=== PATIENT | female | born 1980 | race African-American/Black ===

== ENCOUNTER 2017-08-18 15:22 | Emergency (ER) | payer OTHER ==
[2017-08-18] MEDS: ONDANSETRON 4MG/2ML VIAL (J2405) IV (19:53)
[2017-08-18] MEDS: NS 1,000 ML IV (19:54)
[2017-08-18 20:13] LABS: BASO % 0.3 % (0.0-1.0); EOS % 0.2 % (0.0-3.0); HEMATOCRIT 38.9 % (36.0-47.0); HEMOGLOBIN 12.9 g/dl (12.0-15.5); IMMATURE GRANULOCYTE % 0.2 % (0-3.0); LYMPH # 2.2 10^3/uL (1.5-4.5); LYMPH % 37.2 % (24.0-44.0); MEAN CORPUSCULAR HGB CONC 33.2 g/dl (32.0-36.5); MEAN CORPUSCULAR VOLUME 84.4 fl (80.0-96.0); MONO # 0.6 10^3/uL (0.0-0.8); MONO % 9.4 % (0.0-5.0); NEUTROPHILS # 3.1 10^3/uL (1.8-7.7); NEUTROPHILS % 52.7 % (36.0-66.0); PLATELET COUNT, AUTOMATED 194 10^3/uL (150-450); RED BLOOD COUNT 4.61 10^6/uL (4.00-5.40); RED CELL DISTRIBUTION WIDTH 12.7 % (11.5-14.5); WHITE BLOOD COUNT 5.9 10^3/uL (4.0-10.0)
[2017-08-18 20:37] LABS: KETONE, URINE AUTO RFX 2+ mg/dL (NEGATIVE); LEUKOCYTE ESTERASE UR AUTO RFX NEGATIVE (NEGATIVE); MUCUS, URINE RFX SMALL (NEGATIVE); NITRITE, URINE AUTO RFX NEGATIVE (NEGATIVE); RBC, URINE AUTO RFX 3 /HPF (0-3); SQUAM EPITHELIAL CELL UR AURFX 1 /HPF (0-6); WBC, URINE AUTO RFX 2 /HPF (0-3)
[2017-08-18 20:49] LABS: HCG, SERUM QUANTITATIVE 69624 MIU/ML
== END 2017-08-18 21:19 | disposition home or self-care (01) ==
LOC: M ED 15:22
DX: O23.41 Unspecified infection of urinary tract in pregnancy, first trimester (principal); Z3A.01 Less than 8 weeks gestation of pregnancy
CPT/HCPCS: J2405

== ENCOUNTER 2018-03-22 15:24 | Inpatient (IN) | payer OTHER ==
[~2018-03-22] VITALS: Ht 170.2 cm; Wt 102.0 kg
[2018-03-22] VITALS (10 sets, daily range): BP systolic 126–147; BP diastolic 64–97
[~2018-03-22 15:24] MED LIST: KEFL500C17 PO
[2018-03-22] MEDS ORDERED: OXYTOCIN 30 UNITS IN 0.9% NaCl 500ML IV BAG (J2590) As Ordered ONE (15:35)
[2018-03-22] MEDS ORDERED: PRENTAB9 PO (15:45)
[2018-03-22] MEDS ORDERED: LACTATED RINGER'S 1000 ML IV STA (15:50)
--- NOTE | 2018-03-22 16:04 | HPEPDOC ---
Obstetrical History & Physical General Date of Admission Mar 22, 2018 at 15:35 History of Present Illness 37 yo at 38+4 weeks by LMP of [id number] c/w 1st trimester US on presented to L&D in active labor. She denies any leakage of fluid or bleeding. She endorses movement. is complicated by AMA, and she had low risk cff DNA testing. Chief Complaint: Contractions, term Information Provided By: Patient Age: 37 : 4 Term: 2 Pre-term: 0 Abortions: 1 (Ectopic requiring left salpingectomy) Livin Care Care: Good Care Dating Final EDC: Apr 01, 2018 Final EDC for Daily Update: Apr 01, 2018 Final EDC by: LMP LMP: Jun 25, 2017 1st Trimester Date: Aug 25, 2017 Antepartum Course Diagnos(e)s AMA ---> low risk cff DNA genetic screening Past Medical History Past Obstetrical History : Past Obstetrical History: Multigravida Type of Delivery: Spontaneous Vaginal Del. ( X2 at term. Pelvis proven to 8lbs 3oz.) Complications: No PHTHALIC ACID PURIFIER History: No pertinent history Past Medical History Medical History Denies Surgical History: Appendectomy, Other (Left salpingectomy for ectopic ) Family History Significant Family History: No pertinent family hx Family History Non contributory Social History Marital Status: Family situation: Spouse/partner deployed Psychosocial History: No pertinent psych hx * Smoker: non-smoker Alcohol: Denies Drugs: denies Imunizations Tdap status: current Influenza Status: current Allergies Coded Allergies: No Known Allergies (Unverified , 03/22/18) Medications Scheduled Multivitamins/ ( 27-0.8 mg) 1 Tab Tab, 1 TAB PO DAILY Physical Examination Physical Examination GENERAL: Alert and oriented times three. ABDOMEN: Gravid and non-tender to touch. FETUS: Is vertex (VTX) by sterile vaginal examination (SVE) EXTREMITIES: No edema. Laboratory Data 24H LABS Laboratory Tests 2 03/22/18 15:50: Serology Scanned Report Hepatitis B Testing Urine Culture: No Growth Pertinent Laboratoy Data Blood Type: B+ RBC Antibody Screen: Negative HIV: Negative Hepatitis B: Negative Hepatitis C: Unknown Rapid Plasma Reagin: Nonreactive Rubella: Immune Varicella: Immune Chlamydia/Gonorrhea: Negative Group B Streptococcus: Negative Quad Screen Test: Negative Cystic Fibrosis: Negative Glucose Tolerance Test: 83 Anatomy Ultrasound Placenta Location: Posterior Normal Anatomy: Yes (Choroid plexus cyst, hypocoiled umbilical cord, and EIF) Steroid Therapy Steroid Therapy: No Vaginal Examination Dilation: 8 cm Effacement: 100% Station: -1, 0 Cervical Consistency: Soft Cervical Position: Anterior Presentation: Cephalic presentation Position: Vertex (occiput) Assessment Heart Rate (FHR): 125 Variability: Moderate Accelerations: Positive Decelerations: None Tocometer Contractions: Yes Frequency: regular Duration: greater than 60 seconds Strength: palpated as moderate Assessment/Plan Assessment 37 yo at 38+4 weeks presented to L&D in active labor. is uncomplicated. Plan Admit to L&D for expectant management of labor. Apply IV fluids. GBS negative. Patient may have epidural if desired. Anticipate . DO LEON Yee CHRISTOPHER J. DO Mar 22, 2018 16:04
[2018-03-22] MEDS ORDERED: FENTANYL 2MCG/ML ROPIVACAINE 0.2% IN 0.9% NACL 100ML IVBAG As Ordered ONE (16:37)
[2018-03-22 17:06] LABS: HEMATOCRIT 35.8 % (36.0-47.0); HEMOGLOBIN 11.6 g/dl (12.0-15.5); MEAN CORPUSCULAR HEMOGLOBIN 28.3 pg (27.0-33.0); MEAN CORPUSCULAR HGB CONC 32.4 g/dl (32.0-36.5); MEAN CORPUSCULAR VOLUME 87.3 fl (80.0-96.0); PLATELET COUNT, AUTOMATED 197 10^3/uL (150-450); WHITE BLOOD COUNT 5.8 10^3/uL (4.0-10.0)
--- NOTE | 2018-03-22 17:50 | DNPDOC ---
[facility] Delivery Note Delivery Note DATE OF DELIVERY: 22Mar2018 PREDELIVERY DIAGNOSIS: 38+4 weeks gestation and active labor POST DELIVERY DIAGNOSIS: Delivered. PROCEDURE: Spontaneous vaginal delivery COFFIN MAKER: Dr. Merino ANESTHESIA: None. ESTIMATED BLOOD LOSS: 300 mL. FINDINGS: 7 pound 0 ounce (3180 grams) male infant, Score 9/9. DELIVERY SUMMARY: I was called to the room as Ms. Elias felt a strong urge to push. Exam confirmed fetus at +2 station. AROM performed productive of clear fluid. The bed was broken down and she was prepped for delivery. With excellent pushing effort her infant delivered. Presentation was JESENIA with restitution to ROT. The left anterior shoulder delivered with gentle guidance followed easily by the remainder of the body. The was dried and stimulated on the field and a bulb suction was used. The cried vigorously and was placed on the maternal abdomen. I then clamped the 3 vessel umbilical cord and Ms. Elias cut it. Third staged was completed spontaneously and it was productive of an intact placenta. Inspection of the placenta revealed an approximately 25% area concerning for abruption. The uterine fundus was firmed with massage and pitocin was administered IV bolus. Inspection of the cervix, perineum, labia, and vagina revealed a small, midline first degree vaginal floor laceration. This was repaired with 3-0 vicryl suture in the usual fashion. There was excellent approximation of tissue and hemostasis. The fund us was palpated again and was firm. Sponge, instrument, and needle counts were correct X2. Mother stable when I left the room. DO LEON Yee CHRISTOPHER J. DO Mar 22, 2018 17:50
[2018-03-22] MEDS ORDERED: OXYTOCIN DRIP 30 UNITS in APPROPRIATE DILUENT 1 EA IV SCH (17:51)
[2018-03-22] MEDS ORDERED: ACETAMINOPHEN 500 MG TAB PO PRN (18:00)
[2018-03-22] MEDS ORDERED: DIBUCAINE 1% OINTMENT 30GM TOP PRN (18:00)
[2018-03-22] MEDS ORDERED: RHOGAM 300 MCG (1500 IU) INJ (J2790) IM SCH (18:00)
[2018-03-22] MEDS ORDERED: ONDANSETRON 4MG/2ML VIAL (J2405) IV PRN (18:00)
[2018-03-22] MEDS ORDERED: DOCUSATE SODIUM 100 MG CAP PO PRN (18:00)
[2018-03-22] MEDS ORDERED: MEASLES,MUMPS,RUBELLA VACCINE INJ (MMR-II) (90707) SC SCH (18:00)
[2018-03-22] MEDS: IBUPROFEN 800 MG TAB PO PRN (19:32)
[2018-03-23] MEDS: IBUPROFEN 800 MG TAB PO PRN ×2 (05:39→17:53)
[2018-03-23 06:01] VITALS: BP 135/72
--- NOTE | 2018-03-23 07:20 | IPNPDOC ---
Text Note Date of Service The patient was seen on 03/23/18. NOTE Ms. Elias is a 37 yo G4 now P3 who underwent an uncomplicated in the evening on 22Mar2018. Today she reports feeling well. She is ambulating, voiding, and tolerating a regular diet. Her lochia is minimal and she has no pain. She is . Vitals - VSS, intermittent mild BP elevations, but nothing consistent or severely elevated. Afebrile, non tachycardic General - AAOX3, sitting up in bed, NAD Abdomen - Fundus firm at U-2. No fundal tenderness Extremities - No edema No new labs Ms. Elias is doing well this AM and is making an appropriate recovery. is in [place] and she is currently undecided regarding additional contraception. Continue to encourage ambulation and today. Continue routine care. Anticipate DC home tomorrow. Yamini Quintero DO VS,Fishbone, I+O VS, Fishbone, I+O Laboratory Tests 03/22/18 15:38 Red Blood Count 4.10, Mean Corpuscular Volume 87.3, Mean Corpuscular Hemoglobin 28.3, Mean Corpuscular Hemoglobin Concent 32.4, Red Cell Distribution Width 12.4 Vital Signs Date Time Temp Pulse Resp B/P (MAP) Pulse Ox O2 Delivery O2 Flow Rate FiO2 03/23/18 06:01 98.3 68 16 135/72 (93) I&O- Last 24 Hours up to 6 AM 03/23/18 06:00 Intake Total 1500 ml Output Total 1100 ml Balance 400 ml YAMINI QUINTERO DO Mar 23, 2018 07:20
[2018-03-23] MEDS: PRENATAL VITAMINS CHEWABLE TABLET PO SCH (08:35)
[2018-03-23 18:00] VITALS: BP 129/73
[2018-03-24 05:47] VITALS: BP 134/70
--- NOTE | 2018-03-24 06:42 | IPNPDOC ---
Progress Note Date of Service: Mar 24, 2018 Day#: 2 Progress Note PPD 2 SUBJECT: Rere is a 37yo [id number] s/p uncomplicated after presenting in active labor at 38+wk, doing well day # 2. She has been ambulating, voiding spontaneously without issue and tolerating regular diet. Breast feeding without issue. Reports lochia is like a normal period. No f/c/n/v/CP/SOB. OBJECTIVE: VITAL SIGNS: Within normal limits, afebrile. Alert and oriented times three. Abdomen: Fundus firm at U-2. Soft, NTTP. ASSESSMENT: Rere is a 37yo [id number] s/p uncomplicated after presenting in active labor at 38+wk, doing well day # 2. Vitals within normal limits, afebrile, hemodynamically stable with no evidence of infection. PLAN: 1. Discharge to home today. 2. Tylenol and Motrin for pain. 3. Encourage breast feeding and ambulation. 4. Routine PP visit in 6 weeks in clinic. 5. Discussed return precautions at length. Dr. Beena Smith MD VS, I&O, 24H, Fishbone Vital Signs/I&O Vital Signs Date Time Temp Pulse Resp B/P (MAP) Pulse Ox O2 Delivery O2 Flow Rate FiO2 03/24/18 05:47 97.8 62 18 134/70 (91) Beena Smith MD Mar 24, 2018 06:42
[2018-03-24] MEDS ORDERED: IBUP-1114 PO (07:21)
[2018-03-24] MEDS ORDERED: MAPA500T2 PO (07:21)
[2018-03-24] MEDS ORDERED: COLA100C5 PO (07:22)
[2018-03-24] MEDS: PRENATAL VITAMINS CHEWABLE TABLET PO SCH (08:23)
== END 2018-03-24 10:00 | disposition home or self-care (01) | DRG 807 ==
LOC: M LDO 15:24 → M LDI 15:35 → M OBS 20:10
PROVIDERS: ADMIT Obstetrics & Gynecology; ATTEND Obstetrics & Gynecology
PROC: 10E0XZZ Delivery of Products of Conception, External Approach (ICD-10-PCS; principal; 2018-03-22)
PROC: 10907ZC Drainage of Amniotic Fluid, Therapeutic from Products of Conception, Via Natural or Artificial Opening (ICD-10-PCS; 2018-03-22)
PROC: 0HQ9XZZ Repair Perineum Skin, External Approach (ICD-10-PCS; 2018-03-22)
DX: O70.0 First degree perineal laceration during delivery (principal); Z37.0 Single live birth; Z3A.38 38 weeks gestation of pregnancy

== ENCOUNTER 2020-10-01 23:16 | Outpatient (CLI) | payer OTHER ==
[~2020-10-01] VITALS: Ht 170.2 cm; Wt 110.6 kg
[~2020-10-01 23:16] MED LIST changes: +COLA100C5 PO; +IBUP-1114 PO; +MAPA500T2 PO; +PRENTAB9 PO
[2020-10-01 23:32] VITALS: BP 143/80
[2020-10-01] MEDS ORDERED: ASPI81CH33 PO (23:40)
[2020-10-01] MEDS ORDERED: HOME MED LIST COMPLETE! XX SCH (23:45)
[2020-10-01] MEDS ORDERED: LR 1,000 ML IV ONE (23:55)
[2020-10-02] MEDS ORDERED: BUTORPHANOL 2 MG/ML INJ (J0595) IV ONE (02:15)
[2020-10-02] MEDS ORDERED: PROMETHAZINE INJ 25 MG/ML VIAL (J2550) IV ONE (02:15)
--- NOTE | 2020-10-02 02:30 | IPNPDOC ---
Text Note Date of Service The patient was seen on 10/02/20. NOTE Item Value Date Time Urine Color YELLOW 10/02/2052 Urine Appearance HAZY 10/02/2052 Urine pH 6.0 UNITS 10/02/2052 Urine Specific [place] 1.013 10/02/2052 Urine Protein NEGATIVE mg/dL 10/02/2052 Urine Glucose (UA) NEGATIVE mg/dL 10/02/2052 Urine Ketones NEGATIVE mg/dL 10/02/2052 Urine Blood 1+ H 10/02/2052 Urine Nitrite NEGATIVE 10/02/2052 Urine Bilirubin NEGATIVE 10/02/2052 Urine Urobilinogen 0.2 mg/dL 10/02/2052 Urine Leukocyte Esterase NEGATIVE 10/02/2052 Urine WBC (Auto) 0 /HPF 10/02/2052 Urine RBC (Auto) 1 /HPF 10/02/2052 Urine Hyaline Casts (Auto) 0 /LPF 10/02/2052 Urine Bacteria (Auto) NEGATIVE 10/02/2052 Urine Squamous Epithelial Cells 2 /HPF 10/02/2052 Urine Mucus (Auto) SMALL 10/02/205210/02/20 39 yo AT 36.4 WEEKS BASED ON US AT 8.1 WEEKS EDC 10/26/20 HISTORY CONTRACTIONS 5 2-5 MINUTES WITH PELVIC PRESSURE. PAST HISTORY 2014 39.4 WEEKS MALE 7LBS 3 OZ 12/2015 38 WEEKS MALE 8 LBS 3 OZ 03/2017 38 WEEKS MALE 7 LBS 12/2015 ECTOPIC 8 WEEKS LSO RISK FACTORS AMA CHTN PLAN AND EXAMINATION APPEARS DISTRESSED CONTRACTIONS 4-5 MINUTES NO SHOW NO BLEEDING PELVIC EXAMINATION 2-3 CM VERY POSTERIOR 50% EFFACED -3 STATION NO BLOOD CATEGORY 1 STRIP. REPEAT 3 HOURS LATER STILL DISTRESSED CERVIX NO CHANGE CATEGORY 1 STRIP NO DECELERATIONS MODERATE VARIABILITY BASELINE NORMAL URINE NEGATIVE WELL HYDRATED . OPTIONS GO HOME OR SEDATION TO REST . PATIENT OPTED FOR SEDATION WILL RECHECK IN 3 HOURS VS,Fishbone, I+O VS, Fishbone, I+O Vital Signs Date Time Temp Pulse Resp B/P (MAP) Pulse Ox O2 Delivery O2 Flow Rate FiO2 10/01/20 23:32 77 18 143/80 (101) 10/01/20 23:29 98.5 Mio Polanco MD Oct 02, 2020 02:29
[2020-10-02 02:37] VITALS: BP 128/76
--- NOTE | 2020-10-02 08:00 | DSES ---
DISCHARGE SUMMARY DATE OF ADMISSION: 10/01/2020 DATE OF DISCHARGE: 10/02/2020 This lady is a 39-year-old, 5, para 3, admitted for what appeared distressful contractions 4-5 minutes apart, no show, no bleeding. Pelvic examination showed 2-3 cm very posterior, 50% effaced, minus 3 station, no bloody show, category 1 strip, repeated 3 hours later and 6 hours later, no evidence of change of cervix. Contractions did space out. She was given Stadol and Phenergan for sleep, did have a good sleep and upon re-examination, there is basically no change at 0530 hours in the morning. Her vital signs: Her blood pressure is 143/80. Respirations are 18, pulse 77. Temperature is 98.5. Retake of her blood pressure 128/76, respirations 18, pulse 68. Temperature is 98.l5. Examination is unchanged. The patient was given Stadol and Phenergan to sleep, did a good sleep. Upon waking up, she had typical heart rate tracing based on her Stadol and Phenergan although there were no decelerations. Contractions had spaced out considerably. The patient was discharged undelivered. She has a followup appointment in 48 hours at the office. Precautions were given. All questions were answered, 20 minute discussion. The patient was discharged undelivered. [place] [facility]
== END 2020-10-02 05:56 | disposition home or self-care (01) ==
LOC: M LDO 23:16
PROVIDERS: ATTEND Obstetrics & Gynecology
DX: O10.013 Pre-existing essential hypertension complicating pregnancy, third trimester (principal); Z3A.36 36 weeks gestation of pregnancy; O09.523 Supervision of elderly multigravida, third trimester; O47.03 False labor before 37 completed weeks of gestation, third trimester; Z79.899 Other long term (current) drug therapy
CPT/HCPCS: 59025; 81001; 96361; 96374; 96375; G0378; G0463; J0595

== ENCOUNTER 2020-10-09 13:39 | Outpatient (CLI) | payer OTHER ==
[~2020-10-09] VITALS: Ht 170.2 cm; Wt 112.0 kg
[~2020-10-09 13:39] MED LIST changes: +ASPI81CH33 PO
[2020-10-09 13:57] VITALS: BP 132/86
--- NOTE | 2020-10-09 15:06 | IPNPDOC ---
Text Note Date of Service The patient was seen on 10/09/20. NOTE S: 39yo kurt [id number] @37+4, presents to labor and delivery triage with c/o pelvic pressure and irregular mild contractions. Denies bleeding or LOF, states reassuring FM O: VSS RNST, fhr 130, +accel, -decel, occasional contractions noted Cervical exam 4/80/-3, posterior, moderate A: AMA suspected condition not found P:Pt educated on return precautions, signs of labor, comfort measures, safe use of OTC medication for comfort including tylenol and benadryl for sleep with expressed understanding of all instructions and reasons to return for care. VS,Fishbone, I+O VS, Fishbone, I+O Vital Signs Date Time Temp Pulse Resp B/P (MAP) Pulse Ox O2 Delivery O2 Flow Rate FiO2 10/09/20 13:57 98.8 88 20 132/86 (101) KRISTIE KELLER CNM Oct 09, 2020 15:06
== END 2020-10-09 15:00 | disposition home or self-care (01) ==
LOC: M LDO 13:39
PROVIDERS: ATTEND Registered Nurse
DX: O47.1 False labor at or after 37 completed weeks of gestation (principal); Z3A.37 37 weeks gestation of pregnancy; O09.523 Supervision of elderly multigravida, third trimester
CPT/HCPCS: 59025; G0378; G0463

== ENCOUNTER 2020-10-12 08:18 | Inpatient (IN) | payer OTHER ==
[~2020-10-12] VITALS: Ht 170.2 cm; Wt 111.4 kg
[2020-10-12] VITALS (31 sets, daily range): BP systolic 94–151; BP diastolic 53–88
[2020-10-12] MEDS ORDERED: HOME MED LIST COMPLETE! XX SCH (08:40)
[2020-10-12] MEDS ORDERED: LIDOCAINE 1% MDV 20ML VIAL INFIL PRN (10:20)
[2020-10-12] MEDS ORDERED: OXYTOCIN DRIP 30 UNITS in IV 1 EA IV PRN (10:20)
[2020-10-12] MEDS ORDERED: OXYTOCIN DRIP 30 UNITS in IV 1 EA IV SCH ×2 (10:50→16:10)
[2020-10-12] MEDS: LR 1,000 ML IV SCH ×2 (11:05→14:10)
--- NOTE | 2020-10-12 11:18 | HPEPDOC ---
Obstetrical History & Physical General Date of Admission Oct 12, 2020 at 08:18 History of Present Illness presenting for scheduled IOL for LIANET TRUONG @38 wks Chief Complaint: Induction of labor Information Provided By: Patient Age: 39 : 5 Term: 3 Pre-term: 0 Abortions: 1 Livin Care Care: Good Care Dating Final EDC: Oct 26, 2020 Final EDC for Daily Update: Oct 26, 2020 Final EDC by: LMP LMP: Jan 20, 2020 EGA at Admission: 38 Antepartum Course Diagnos(e)s LIANET TRUONG Height (inches): 67 Pre- weight (lbs.): 206 Admission Weight (lbs.): 245 Change in Weight (lbs.): 39 Past Medical History Past Obstetrical History #1: Past Obstetrical History: Multigravida (2015, 39+4, 7#3 male) Type of Delivery: Spontaneous Vaginal Del. Sex of : Male Past Obstetrical History #2: Past Obstetrical History: Multigravida (2016, 38, 8#3 male) Type of Delivery: Spontaneous Vaginal Del. Sex of Infant: Male Past Obstetrical History #3: Past Obstetrical History: Multigravida (2018, 38, 7# male) Type of Delivery: Spontaneous Vaginal Del. Sex of Infant: Male Complications: No SUPERVISOR NURSE History: Ectopic (8wk left salpingectomy) Past Medical History Medical History CHTN, obesity Surgical History: Appendectomy, Other (left salpingectomy for ectopic pregnan cy) Family History Significant Family History: No pertinent family hx Social History Marital Status: Family situation: Spouse/partner home Psychosocial History: No pertinent psych hx * Smoker: non-smoker Alcohol: Denies Drugs: denies Abuse Violence Screening Have you been hit/kicked/slapp: No Have you been sexually assault: No Imunizations Tdap status: current Influenza Status: current Allergies Coded Allergies: No Known Allergies (Unverified , 03/22/18) Medications Scheduled No.137/Iron/Folic Acd ( Vitamin Tablet) 1 Tab Tab, 1 TAB PO DAILY Physical Examination Physical Examination GENERAL: Alert and oriented times three. BREAST: . ABDOMEN: Gravid and non-tender to touch. FETUS: Is vertex (VTX) by sterile vaginal examination (SVE), fetus is vertex (VTX) by Trent. HEART RATE: Regular rate and rhythm. LUNGS: Clear to auscultation (CTA). EXTREMITIES: No edema. No clonus. Deep tendon reflexes (DTRs) + 2. Vital Signs/I&O Vital Signs Date Time Temp Pulse Resp B/P (MAP) Pulse Ox O2 Delivery O2 Flow Rate FiO2 10/12/20 10:17 78 16 124/75 (91) 10/12/20 08:34 99 Room Air 10/12/20 08:33 98.2 Pertinent Laboratoy Data Blood Type: B+ RBC Antibody Screen: Negative HIV: Negative Hepatitis B: Negative Rapid Plasma Reagin: Nonreactive Rubella: Immune Varicella: Immune Chlamydia/Gonorrhea: Negative Group B Streptococcus: Negative Cystic Fibrosis: Negative Anatomy Ultrasound Ultrasound Date: Sep 07, 2020 Placenta Location: Anterior Normal Anatomy: Yes Placenta Previa: No Vaginal Examination Dilation: 4 cm Effacement: 80% Station: -2 Cervical Consistency: Soft Cervical Position: Posterior Presentation: Cephalic presentation Assessment Heart Rate (FHR): 120 Variability: Moderate Accelerations: Positive Decelerations: None Tocometer Contractions: Yes Frequency: greater than 9 min/apart Duration: greater than 60 seconds Strength: palpated as mild, resting tone palp/soft Multi-drug resistant Organism: No history of MDRO Assessment/Plan Assessment Rere is a 39-year-old (G)5 para (P)3-0-1-3 at 38+0 weeks by 8+1-week ultrasound. Presents to Labor and Delivery (L&D) for scheduled IOL. Denies bleeding, LOF, states irregular cramping has continued and she has frequent movement. Plan Admit and orient. Ruby On Rails Web Developer and consent. Diet: clear. Group B Streptococcus (GBS) negative. Labs and intravenous (IV) per unit protocol. Counseled on Pitocin and induction of labor (IOL). Lactated Ringers (LR): at 125 mL/hr, bolus 1000mL prior to epidural anesthesia. Anticipate [normal spontaneous delivery ()]. C-S as appropriate. KRISTIE KELLER CNM Oct 12, 2020 11:18
[2020-10-12 12:17] LABS: HEMATOCRIT 37.1 % (36.0-47.0); HEMOGLOBIN 11.9 g/dl (12.0-15.5); MEAN CORPUSCULAR HEMOGLOBIN 29.3 pg (27.0-33.0); MEAN CORPUSCULAR HGB CONC 32.1 g/dl (32.0-36.5); MEAN CORPUSCULAR VOLUME 91.4 fl (80.0-96.0); PLATELET COUNT, AUTOMATED 190 10^3/uL (150-450); RED BLOOD COUNT 4.06 10^6/uL (4.00-5.40); WHITE BLOOD COUNT 5.1 10^3/uL (4.0-10.0)
[2020-10-12] MEDS ORDERED: FENTANYL 2MCG/ML ROPIVACAINE 0.2% IN 0.9% NACL 100ML IVBAG As Ordered ONE (13:38)
[2020-10-12] MEDS ORDERED: FENTANYL/ROPIVACAINE/NACL BAG 100 ML EPIDURAL SCH (15:25)
[2020-10-12] MEDS ORDERED: EPIDURAL/PCA KEYS XX PRN (15:25)
[2020-10-12] MEDS ORDERED: diphenhydrAMINE 50MG/ML VIAL (J1200) IV PRN (15:25)
[2020-10-12] MEDS ORDERED: EPIDURAL COMMENT XX SCH (15:25)
[2020-10-12] MEDS ORDERED: ONDANSETRON 4MG/2ML VIAL IV PRN (15:25)
[2020-10-12] MEDS ORDERED: LACTATED RINGER'S 1000 ML IV PRN (15:25)
[2020-10-12] MEDS ORDERED: NALOXONE INJ 0.4MG/1ML VIAL (J2310 PER 1MG) IV PRN (15:25)
[2020-10-12] MEDS ORDERED: ePHEDrine SULFATE 25 MG/5 ML(5MG/ML) SYRINGE IV PRN (15:25)
[2020-10-12] MEDS ORDERED: REFRIGERATOR IV KEYS XX PRN (15:25)
[2020-10-12] MEDS ORDERED: RHOGAM 300 MCG (1500 IU) INJ (J2790) IM SCH (16:10)
[2020-10-12] MEDS ORDERED: MEASLES,MUMPS,RUBELLA VACCINE INJ (MMR-II) (90707) SC SCH (16:10)
[2020-10-12] MEDS ORDERED: METHYLERGONOVINE MALEATE 0.2 MG TAB PO PRN (16:10)
[2020-10-12] MEDS ORDERED: ACETAMINOPHEN TAB 650MG DOSE (2X325MG) PO PRN (16:10)
[2020-10-12] MEDS ORDERED: DIBUCAINE 1% OINTMENT 30GM TOP PRN (16:10)
[2020-10-12] MEDS ORDERED: DOCUSATE SODIUM 100MG CAPSULE PO PRN (16:10)
--- NOTE | 2020-10-12 16:32 | DNPDOC ---
[facility] Delivery Note Delivery Note DATE OF DELIVERY: 12Oct2020 PREDELIVERY DIAGNOSIS: 38-0/7 weeks' gestation and labor. POST DELIVERY DIAGNOSIS: Delivered. PROCEDURE: Spontaneous vaginal delivery. OFFICE AUTOMATION CLERK: Samantha Keller CNM ANESTHESIA: epidural. ESTIMATED BLOOD LOSS: 200 mL. FINDINGS: 8 pound 15 ounce male , Score 9/9, bandalero cord times 1. DELIVERY SUMMARY: Patient is a 39-year-old 5 now para 4-0-1-4 who was admitted to labor and delivery for IOL on 12Oct2020. After becoming comfortable from epidural, patient was examined at 6/80/-3, AROM for clear fluid. Shortly after exam, Rere called out with c/o pressure and urge to push, at which time she was found to be C/C/+2. Brisk decent was made with maternal pushing efforts to in OA presentation with restitution to HARLEY. A cord was noted after delivery of the head and found to be bandalero. The right anterior shoulder delivered easily followed by the posterior shoulder and corpus. The male was placed immediately skin to skin on the maternal abdomen where he was dried and stimulated to cry. Pitocin infusion was initiated per protocol. The cord was clamped x2 after pulsation ceased and cut by the patient. The pl acenta delivered spontaneously intact in Pollard presentation with moderate bleeding. The cervix and vagina were swept for a small amount of clots and the fundus massaged until firm. Examination of the perineum revealed a small hemostatic perineal laceration which did not require repair. Mother and baby entered the recovery phase in stable condition. SAMANTHA KELLER CNM Oct 12, 2020 16:32
[2020-10-12] MEDS ORDERED: SLF 3 ML SYR IV PRN (18:25)
[2020-10-12] MEDS: IBUPROFEN 800 MG TAB PO PRN (18:34)
[2020-10-12] MEDS: SLF 3 ML SYR IV SCH (22:04)
[2020-10-13] MEDS: IBUPROFEN 800 MG TAB PO PRN ×2 (02:46→14:44)
[2020-10-13 05:58] VITALS: BP 139/89
[2020-10-13] MEDS: SLF 3 ML SYR IV SCH (06:45)
--- NOTE | 2020-10-13 08:52 | IPN ---
PROGRESS NOTE DATE: 10/13/2020 SUBJECTIVE: This patient is a 39-year-old 5, now para 4 admitted for induction of labor at 38 weeks gestation. She has history of chronic hypertension and AMA. She had spontaneous vaginal delivery male 8 pounds 15 ounces, Apgars of 9 and 9 at 1 and 5 minutes respectively. The placenta was complete. Perineum was intact. OBJECTIVE: On her first day we discussed phlebitis, cystitis, mastitis, endometritis, cellulitis, diet, exercise, pain management, perineal and breast care. The rest of the examination is unremarkable. Normocephalic, atraumatic. Neck with full range of motion. Pupils equal and reactive to light. Distal pulses symmetric. No evidence of DVT, PE, or superficial phlebitis. Chest clear bilaterally to the bases. No wheezing. No rhonchi. No CVA tenderness. Abdomen soft. Four quadrant bowels sounds are noted. Uterus two below, lochia is moderate. No rashes, lesions, pruritus. No arthralgia or myalgias. No complaint of joint pain. No complaint of cough, wheeze, shortness of breath, or dyspnea on exertion. No nausea, vomiting, diarrhea, or constipation. No urgency or frequency. Her vital signs this morning are blood pressure 139/89, respirations 18, pulse 78, temperature 97.9. Her admitting hemoglobin was 11.9, hematocrit 37.1, platelets 190. ASSESSMENT: In summary, we have a term gestation, delivered a livebirth male infant. We are awaiting clearance for circumcision by the mate chief. PLAN: The patient's expectations are to go home tomorrow. Medications to be picked up at [place]. 20 minute discussion. All questions were answered. cc: [place] [facility]
[2020-10-13] MEDS: PRENATAL VITAMINS CHEWABLE TABLET PO SCH (09:17)
[2020-10-13 17:47] VITALS: BP 138/72
--- NOTE | 2020-10-14 05:25 | IPNPDOC ---
Progress Note Date of Service: Oct 14, 2020 Day#: 2 Progress Note DELIVERY SUMMARY: Patient is a 39-year-old 5 now para 4-0-1-4 who was admitted to labor and delivery for IOL for CHTN on 12Oct2020 and had a vaginal delivery, 8 pound 15 ounce male , Score 9/9, bandalero cord times 1. She has been ambulating, voiding spontaneously without issue and tolerating regular diet. Breast feeding without issue. Reports lochia is less than a normal period]. Patient is ambulating well. [Reports some cramping with . Denies any pain. Voiding and stooling without difficulty]. OBJECTIVE: VITAL SIGNS: Within normal limits, afebrile. Alert and oriented times three. no increased wob Heart rate: non-tachy Abdomen: Fundus firm at U-2. Soft, NTTP. [Minimal] lochia per pt ASSESSMENT: Patient is a 39-year-old 5 now para 4-0-1-4 who was admitted to labor and delivery for IOL for CHTN on 12Oct2020 and had a vaginal delivery, 8 pound 15 ounce male , Score 9/9, bandalero cord times 1. Vitals within normal limits, afebrile, hemodynamically stable with no evidence of infection. PLAN: 1. Discharge to home today. 2. Tylenol and Motrin for pain. 3. Encourage breast feeding and ambulation. 4. Desires mirena IUD for contraception. 5. Routine PP visit in 72h/7d (blood pressure checks) and 6 weeks in clinic. 6. Discussed return precautions at length to include pelvic rest and signs and symptoms of pre-eclampsia. VS, I&O, 24H, Fishbone Vital Signs/I&O Vital Signs Date Time Temp Pulse Resp B/P (MAP) Pulse Ox O2 Delivery O2 Flow Rate FiO2 10/13/20 17:47 98.0 68 18 138/72 (94) 99 10/12/20 18:32 Room Air KARIE BACON DO Oct 14, 2020 05:25
--- NOTE | 2020-10-14 05:48 | OBDS ---
[facility] Obstetrical Discharge Sum. A/P, Post Course List any complications Patient is a 39-year-old 5 now para 4-0-1-4 who was admitted to labor and delivery for induction of labor for chronic hypertension on 12Oct2020 and had a vaginal delivery, 8 pound 15 ounce male infant, Score 9/9, bandalero cord times 1. She has been ambulating, voiding spontaneously without issue and tolerating regular diet. Breast feeding without issue. Reports lochia is less than a normal period. Patient is ambulating well. Reports some cramping with . Denies any pain. Voiding and stooling without difficulty. Vitals within normal limits, afebrile, hemodynamically stable with no evidence of infection. PLAN: 1. Discharge to home today. 2. Tylenol and Motrin for pain. 3. Encourage breast feeding and ambulation. 4. Desires mirena IUD for contraception. 5. Routine PP visit in 72h/7d (blood pressure checks) and 6 weeks in clinic. 6. Discussed return precautions at length to include pelvic rest and signs and symptoms of pre-eclampsia. KARIE BACON DO Oct 14, 2020 05:48
[2020-10-14 06:10] VITALS: BP 130/80
[2020-10-14] MEDS: PRENATAL VITAMINS CHEWABLE TABLET PO SCH (08:32)
[2020-10-14] MEDS: IBUPROFEN 800 MG TAB PO PRN (08:33)
== END 2020-10-14 13:50 | disposition home or self-care (01) | DRG 807 ==
LOC: M LDI 08:18 → M OBS 19:15
PROVIDERS: ADMIT Registered Nurse; ATTEND Registered Nurse
PROC: 10E0XZZ Delivery of Products of Conception, External Approach (ICD-10-PCS; principal; 2020-10-12)
PROC: 10907ZC Drainage of Amniotic Fluid, Therapeutic from Products of Conception, Via Natural or Artificial Opening (ICD-10-PCS; 2020-10-12)
PROC: 3E033VJ Introduction of Other Hormone into Peripheral Vein, Percutaneous Approach (ICD-10-PCS; 2020-10-12)
DX: O10.02 Pre-existing essential hypertension complicating childbirth (principal); Z37.0 Single live birth; Z3A.38 38 weeks gestation of pregnancy; O69.82X0 Labor and delivery complicated by other cord entanglement, without compression, not applicable or unspecified; O71.82 Other specified trauma to perineum and vulva

== ENCOUNTER → 2020-11-27 | Outpatient (CLI) | payer OTHER ==
[2020-11-27 12:41] LABS: ALBUMIN 3.4 GM/DL (3.2-5.2); ALT/SGPT 25 U/L (12-78); BILIRUBIN,TOTAL 0.3 MG/DL (0.2-1.0); BLOOD UREA NITROGEN 10 MG/DL (7-18); CALCIUM LEVEL 8.5 MG/DL (8.5-10.1); CARBON DIOXIDE LEVEL 27 MEQ/L (21-32); CHLORIDE LEVEL 109 MEQ/L (98-107); CREATININE FOR GFR 0.84 MG/DL (0.55-1.30); GLOMERULAR FILTRATION RATE > 60.0 (>58); GLUCOSE, FASTING 109 MG/DL (70-100); LDH LACTATE DEHYDROGENASE 236 U/L (84-246); SODIUM LEVEL 140 MEQ/L (136-145); URIC ACID 5.1 MG/DL (2.6-6.0)
== END ==
LOC: M LAB 11:30
PROVIDERS: ATTEND Obstetrics & Gynecology
DX: O14.90 Unspecified pre-eclampsia, unspecified trimester (principal)

== ENCOUNTER 2021-08-07 10:24 | Day surgery (SDC) | payer OTHER ==
[~2021-08-07] VITALS: Ht 170.2 cm; Wt 103.0 kg
[~2021-08-07 10:24] MED LIST changes: +ACETAMINOPHEN 650 MG SUPP PR ONE; +HYDR12.55 PO; +NS 1,000 ML IV SCH
[2021-08-07] MEDS ORDERED: LR 1,000 ML IV SCH ×2 (10:45→16:05)
[2021-08-07] MEDS ORDERED: LIDOCAINE 1% SDV 5ML VIAL SC PRN (10:45)
[2021-08-07 11:00] LABS: HEMATOCRIT 39.3 % (36.0-47.0); HEMOGLOBIN 12.4 g/dl (12.0-15.5); MEAN CORPUSCULAR HEMOGLOBIN 28.1 pg (27.0-33.0); MEAN CORPUSCULAR HGB CONC 31.6 g/dl (32.0-36.5); MEAN CORPUSCULAR VOLUME 89.1 fl (80.0-96.0); PLATELET COUNT, AUTOMATED 246 10^3/uL (150-450); RED BLOOD COUNT 4.41 10^6/uL (4.00-5.40); WHITE BLOOD COUNT 4.2 10^3/uL (4.0-10.0)
[2021-08-07 11:28] LABS: BLOOD UREA NITROGEN 10 MG/DL (7-18); CALCIUM LEVEL 9.2 MG/DL (8.5-10.1); CARBON DIOXIDE LEVEL 31 MEQ/L (21-32); CHLORIDE LEVEL 110 MEQ/L (98-107); CREATININE FOR GFR 0.86 MG/DL (0.55-1.30); GLOMERULAR FILTRATION RATE > 60.0 (>58); GLUCOSE, FASTING 94 MG/DL (70-100); HCG, SERUM QUANTITATIVE < 1.0 MIU/ML; POTASSIUM SERUM 4.3 MEQ/L (3.5-5.1); SODIUM LEVEL 142 MEQ/L (136-145)
[2021-08-07] MEDS ORDERED: fentaNYL 100 MCG/2 ML INJECTION As Ordered ONE ×2 (14:17→14:59)
[2021-08-07] MEDS ORDERED: MIDAZOLAM INJ 2MG/2ML VIAL (J2250 PER 1MG) As Ordered ONE (14:17)
[2021-08-07] MEDS ORDERED: SEVOFLURANE INHAL SOLN 250 ML BTL As Ordered ONE (14:22)
[2021-08-07] MEDS ORDERED: ACETAMINOPHEN 650 MG SUPP As Ordered ONE (14:35)
[2021-08-07] MEDS ORDERED: BUPIVACAINE HCL 0.5% 30ML VIAL As Ordered ONE (14:35)
[2021-08-07] MEDS ORDERED: LIDOCAINE 2% 100MG/5ML SDV (FOR ANES.) As Ordered ONE (15:16)
[2021-08-07] MEDS ORDERED: dexameTHASONE 4 MG/ML 1ML VIAL (J1100 PER 1MG) As Ordered ONE (15:16)
[2021-08-07] MEDS ORDERED: ROCURONIUM BROMIDE 50 MG/5 ML VIAL As Ordered ONE (15:16)
[2021-08-07] MEDS ORDERED: propofoL 200 MG/20 ML VIAL As Ordered ONE (15:16)
[2021-08-07] MEDS ORDERED: SUGAMMADEX SODIUM 500 MG/5 ML VIAL (BRIDION) As Ordered ONE (15:17)
[2021-08-07] MEDS ORDERED: KETOROLAC 60MG 2ML VIAL As Ordered ONE (15:17)
[2021-08-07] MEDS ORDERED: ONDANSETRON 4MG/2ML VIAL As Ordered ONE (15:17)
[2021-08-07] MEDS ORDERED: LABETALOL 100MG/20ML VIAL As Ordered ONE (15:29)
[2021-08-07] MEDS ORDERED: MORPHINE 2 MG/ML 1ML VIAL IV PRN (16:05)
[2021-08-07] MEDS ORDERED: oxyCODONE 5MG TAB PO PRN (16:05)
[2021-08-07] MEDS ORDERED: ONDANSETRON 4MG/2ML VIAL IV PRN (16:05)
[2021-08-07] MEDS: fentaNYL 100 MCG/2 ML INJECTION IV PRN ×2 (16:27→16:37)
[2021-08-07 18:30] VITALS: BP 150/78
== END 2021-08-07 18:41 | disposition home or self-care (01) ==
LOC: M SDC 10:24
PROVIDERS: ATTEND Obstetrics & Gynecology
DX: Z30.2 Encounter for sterilization (principal); I10 Essential (primary) hypertension; Z79.899 Other long term (current) drug therapy
CPT/HCPCS: 36415; 58661; 80048; 84702; 85027; 88302; J1100; J1885; J2250; J2405; J3010

== ENCOUNTER 2025-02-04 13:00 | Outpatient (CLI) | payer OTHER ==
[~2025-02-04] VITALS: Ht 170.2 cm; Wt 100.0 kg
[~2025-02-04 13:00] MED LIST changes: -ACETAMINOPHEN 650 MG SUPP PR ONE; +ALBUTEROL SULFATE 2.5 MG/0.5 ML INH CONCENTRATE NEB SOLN INH PRN; +EPINEPHrine INJ 1 MG/ML 1ML AMP IM PRN; -NS 1,000 ML IV SCH; +diphenhydrAMINE 50 MG/ML VIAL IV PRN
[2025-02-04 13:35] VITALS: BP 145/86; O2SAT 100
[2025-02-04] MEDS: ACETAMINOPHEN 650 MG PO ONE (14:09)
[2025-02-04 15:20] VITALS: BP 152/84; O2SAT 100
== END 2025-02-04 15:20 | disposition home or self-care (01) ==
LOC: M INFU 13:00
PROVIDERS: ATTEND Nurse Practitioner Primary Care
DX: D50.9 Iron deficiency anemia, unspecified (principal)
CPT/HCPCS: 96365; J1756

== ENCOUNTER 2025-02-11 13:24 | Outpatient (CLI) | payer OTHER ==
[~2025-02-11] VITALS: Ht 170.2 cm; Wt 100.0 kg
[2025-02-11] MEDS: ACETAMINOPHEN 650 MG PO ONE (14:12)
[2025-02-11 14:15] VITALS: BP 138/88; O2SAT 98
[2025-02-11 14:45] VITALS: BP 148/70; O2SAT 100
== END 2025-02-11 14:45 | disposition home or self-care (01) ==
LOC: M INFU 13:24
PROVIDERS: ATTEND Nurse Practitioner Primary Care
DX: D50.9 Iron deficiency anemia, unspecified (principal)
CPT/HCPCS: 96365; J1756

== ENCOUNTER 2025-02-18 13:30 | Outpatient (CLI) | payer OTHER ==
[~2025-02-18] VITALS: Ht 170.2 cm; Wt 95.5 kg
[2025-02-18 13:30] VITALS: BP 164/58; O2SAT 97
[~2025-02-18 13:30] MED LIST changes: +ACETAMINOPHEN 650 MG PO ONE
[2025-02-18 14:25] VITALS: BP 169/70; O2SAT 96
== END 2025-02-18 14:27 ==
LOC: M INFU 13:30
PROVIDERS: ATTEND Nurse Practitioner Primary Care
DX: D50.9 Iron deficiency anemia, unspecified (principal)
CPT/HCPCS: 96365; J1756